=== PATIENT | male | born 1975 | race Caucasian/White ===

== ENCOUNTER 2017-06-05 10:58 | Emergency (ER) | payer BC ==
[~2017-06-05] VITALS: Ht 182.9 cm; Wt 108.0 kg
[2017-06-05 11:05] VITALS: TEMP 36.7; Ht 182.9 cm; Wt 108.0 kg
[2017-06-05] MEDS ORDERED: ACET-1311 PO (11:15)
[2017-06-05] MEDS ORDERED: OXYC1TAB3 PO (11:15)
[2017-06-05] MEDS ORDERED: OXYCODONE/ACETAMINOPHEN 5-325 TAB PO STA (11:33)
--- NOTE | 2017-06-05 12:37 | DIAGNOSTIC IMAGING REPORT ---
CT SCAN OF LUMBAR SPINE WITHOUT IV CONTRAST CLINICAL HISTORY: Low back pain with left lower extremity radiculopathy. COMPARISON STUDY: No priors. TECHNIQUE: CT scan of the lumbar spine is performed from the lower thoracic spine to the sacrum. Images are reviewed in the axial, sagittal, and coronal planes. IV contrast was not administered for this examination. A dose lowering technique was utilized adhering to the principles of ALARA. CT DOSE: 918.46 mGy.cm FINDINGS: The skeletal structures are well mineralized. There is no evidence of fracture or malalignment. Vertebral body height and alignment are maintained throughout the lumbar spine. No lytic or blastic lesion is seen. The transverse and spinous processes appear intact. There is no spondylolysis. No significant facet arthropathy is identified. There is moderate disc space narrowing at L5-S1. Mild disc space narrowing is seen at L4-L5. There is a disc herniation eccentric to the left at L4-L5. There is at least moderate central canal stenosis at this level with a minimum AP diameter of 5.5 mm. This likely impinges on the transiting bilateral nerve roots. There is a disc bulge eccentric to the left at L5-S1. This causes left-sided subarticular stenosis and may impinge on the exiting left L5 and transiting left S1 nerve roots. There is only minimal acquired compromise of the central canal at L5-S1. No significant neural foraminal stenosis is seen throughout the lumbar spine. The visualized sacrum and bony pelvis appear intact. Mild degenerative change is seen involving the sacroiliac joints. The paraspinous soft tissues are within normal limits. The retroperitoneal structures are normal as visualized. IMPRESSION: 1. No acute bony abnormality is seen involving the lumbar spine. 2. There is a disc herniation eccentric to the left at L4-L5. This causes moderate central canal stenosis and likely impinges on the bilateral transiting nerve roots. 3. A disc bulge eccentric to the left is seen at L5-S1. This may impinge on the exiting left L5 and transiting left S1 nerve roots. Dictated: 06/05/2017 12:10 PM Transcribed: 06/05/2017 12:37 PM Padma Electronically signed by: Eb Koenig M.D. 06/05/2017 1:03 PM Dictated Date/Time: 06/05/2017 12:10 PM
[2017-06-05] MEDS ORDERED: PRED20TA2 PO (13:22)
[2017-06-05] MEDS ORDERED: OXYC-57 PO (13:22)
[2017-06-05 13:34] VITALS: BP 130/91; PULSE 76; O2SAT 97
--- NOTE | 2017-06-05 16:34 | EMERGENCY ROOM VISIT NOTE ---
ED Visit Note First contact with patient: 11:14 Chief Complaint: Lower back pain. History of Present Illness: Mr. Al is a 42-year-old white male who ambulates into the ED accompanied by his complaining of lumbar back pain. Historically patient reports in 2004 he had a hemilaminectomy of the L5-S1 area for a disc herniation from a traumatic injury. Postoperative patient has had residual weakness and pain in the left lower extremity. Patient reports 2 days ago he was driving to work and felt a popping sensation in his lower back. Since that time he has been having severe lumbar back pain. He describes his pain as a sharp sensation. He places it at the L3 through S1 area. Pain is radiating down the left leg which is also residual from his previous surgery He rates his discomfort 8/10. His pain worsens with all movement of the lumbar spine and palpation. He has not identified any alleviating factors related to the pain. He has been using ibuprofen without relief of his discomfort. Associated with his pain he reports he is having left lying numbness but does report he had this from his previous surgery and it slightly more intense than previous. He denies any associated fevers, chills, sweats, skin eruptions, skin color changes, recent trauma, abdominal pain, nausea, vomiting, diarrhea, constipation , rectal bleeding, black/tarry stools, urinary symptoms, hematuria, bowel and bladder dysfunction, genital paresthesias. Review of Systems: As noted above in history of present illness. All body systems were reviewed and found to be negative as noted above. Past Medical History: As previously noted and kidney stones. Current Medications: Patient denies. Allergies to Medications: Patient denies. Social History: Patient is currently employed; he feels safe in his home environment; he admits to tobacco and alcohol use. Physical Examination: Vital Signs: Date Time Temp Pulse Resp B/P (MAP) Pulse Ox O2 Delivery O2 Flow Rate FiO2 06/05/17 13:34 76 18 130/91 97 06/05/17 13:04 76 18 130/91 97 Room Air 06/05/17 11:05 36.7 94 16 141/94 94 Room Air GENERAL: 42-year-old male in moderate distress due to pain, nontoxic-appearing, afebrile and hemodynamically stable. NEUROLOGICAL: Awake, alert and oriented to person, place and time. Answering questions appropriately and following commands. Normal gait. Good hand eye coordination. No focal motor sensory deficits. SKIN: Warm, dry and pink. No soft tissue eruptions or trauma noted. HEENT: Atraumatic and normocephalic. BACK: No tenderness over the bony cervical and thoracic spine. Moderate tenderness from the L3 to S1 area over the bony prominence and throughout the paraspinous muscles. No palpable bony deformity or crepitus. Previous surgical site is clean dry and intact. Positive straight leg raise test bilaterally but more prominent on the left than the right. Decreased range of motion in all movements at the waist due to pain. No CVA tenderness. THORAX: Lungs sounds are clear to auscultation and equal bilaterally with symmetrical chest wall. HEART: Regular rate and rhythm. No gallops, rubs or murmurs are appreciated. ABDOMEN: Flat, soft and nontender. Positive bowel sounds in all quadrants. No guarding, rigidity or organomegaly. LOWER EXTREMITIES: No gross bony deformity. No shortening or malrotation. No tenderness in the hip, knee, ankle, foot. Difficulty to elicit patellar reflexes but plantar flexes were 2+ bilaterally. 4/5 muscle strength in all movements of the hip, ankle and knee. No calf tenderness or cords. No dependent edema. Pulses are intact and capillary refill is brisk. He was able to distinguish light sensations. ED Course: Patient is assessed as noted above. Patient's medication list was reviewed. Patient was given 2 Percocet 5/325 mg tablets by mouth for pain. Lumbar Spine CT: Was reviewed by myself and read by the radiologist showing disc herniation eccebtruc to the left at L4-L5 causing moderate canal stenosis and likely impinges on the bilateral transiting nerve roots. Disc bulging eccentric to the left at L5-S1 with impingement on the exiting L5 and transiting left S1 nerve root. Patient's case was reviewed with Dr. Little; we agreed on diagnostic approach, treatment, disposition and plan. I attempted to consulted with Dr. Dawson but was unsuccessful. Patient was educated about today's findings and instructed on his treatment plan ; he verbalizes understanding and agreement with this plan. Clinical Impression: L4-L5 disc herniation with worsening left-sided neuropathy. Disposition: Patient discharged home in stable condition accompanied by his ; prior to departure he was reassessed and continued to rate his discomfort . Plan: Comfort measures were discussed with the patient including rest, ice and a sliding pain medication scale of ibuprofen, acetaminophen and Percocet; his name was checked in the state database and no red flags were noted and he was given appropriate narcotic precautions. Patient was prescribed prednisone 60 mg once a day for total of 5 days. Patient was encouraged to follow-up with Dr. Dawson, the [facility] for definitive care and treatment. Patient was encouraged return ED for worsening/uncontrolled pain, fevers, abdominal pain, worsening leg weakness/numbness/tingling, inability control bowel and bladder functions, genital paresthesias or any new/concerning symptoms.
== END 2017-06-05 13:37 | disposition home or self-care (01) ==
LOC: C.EDB 10:59 → C.EDD 13:37
DX: M51.16 Intervertebral disc disorders with radiculopathy, lumbar region (principal); F17.200 Nicotine dependence, unspecified, uncomplicated; Z72.89 Other problems related to lifestyle; Z87.442 Personal history of urinary calculi

== ENCOUNTER → 2017-06-21 | Outpatient (CLI) | payer BC ==
[~2017-06-21] MED LIST: ACET-1256 PO; ACET-1311 PO; CALC500C3 PO; HYDR-4079 PO; IBUP-1050 PO; LANS15CA6 PO; OXYC-57 PO; OXYC1TAB3 PO; PRD/1 PO
[2017-06-21 13:42] LABS: BASO % 0.2 %; BASO ABS # 0.02 K/uL (0-0.2); COMPLETE YES; EOS % 0.7 %; HEMATOCRIT 47.8 % (42-52); IG% 0.4 %; LYMPH % 31.4 %; LYMPH ABS # 3.37 K/uL (1.2-3.4); MEAN CELL VOLUME 97.8 fL (80-100); MEAN CORPUSCULAR HEMOGLOBIN 33.1 pg (25-34); MEAN CORPUSCULAR HGB CONC 33.9 g/dl (32-36); MEAN PLATELET VOLUME 10.3 fL (7.4-10.4); MONO % 8.2 %; NEUT % 59.1 %; PLATELET COUNT 245 K/uL (130-400); RED BLOOD COUNT 4.89 M/uL (4.7-6.1); WHITE BLOOD COUNT 10.73 K/uL (4.8-10.8)
== END | disposition home or self-care (01) ==
LOC: C.LABBC 10:07
PROVIDERS: ATTEND Orthopaedic Surgery Orthopaedic Surgery of the Spine
DX: Z01.818 Encounter for other preprocedural examination (principal)

== ENCOUNTER 2017-07-07 08:43 | Inpatient (IN) | payer BC ==
[2017-06-23 15:46] VITALS: BMI 32.0
--- NOTE | 2017-07-06 12:02 | HISTORY & PHYSICAL EXAMINATION ---
DATE OF ADMISSION: 07/07/2017 HISTORY OF PRESENT ILLNESS: He is being preoped for a posterior lumbar interbody fusion at L5-S1. Rosales is a delightful gentleman. I have known him for several weeks. He has regressed. He is not improved. He has some neurological deficit. He cannot function at work. He has been worked up for disc herniation and degenerative changes of lumbar spine. He has no red flags of fevers, sweats, chills. He is being again set for a PLIF procedure L5-S1. PAST MEDICAL HISTORY: Positive for spine problems, acid reflux, obesity. SURGICAL HISTORY: Spine surgery. No history of EKG issues, hypertension, does have high cholesterol. No diabetes, no anemia. MEDICATIONS: Include Percocet, prednisone. SOCIAL HISTORY: Negative alcohol, negative cigarettes, negative tobacco, no herbs or supplements. REVIEW OF SYSTEMS: Denies fever, sweats, chills, bowel and bladder issues, weight loss, gain. Denies chest pain, palpitation, shortness of breath. Denies nausea, vomiting, urgency, frequency, dysuria. Admits to some back pain, primarily lower extremity difficulty secondarily. OBJECTIVE: VITAL SIGNS: Stable. Blood pressure 130/80, pulse 80, respiration rate 16, afebrile. HEAD, EYES, EARS, NOSE, AND THROAT: Pupils react to light and accommodation. Ear, nose and throat clear. CARDIAC: Normal S1, S2, no S3. LUNGS: Clear to auscultation. No rales, rhonchi or wheezing. ABDOMEN: Soft, nontender. MUSCULOSKELETAL: He has some paresthesias to the lower extremities. Positive pain with straight leg raising, positive tension signs. No upper motor neuron issues. Range of motion decreased by a factor of about 50 to 75% per normal on flexion, extension, rotation, side bending. X-rays demonstrate herniation, degenerative changes L5-S1. ASSESSMENT: Disc herniation L5-S1, degenerative changes L5-S1. PROCEDURE: Included a posterior lumbar interbody fusion L5-S1.
[2017-07-07] VITALS (8 sets, daily range): BP systolic 109–157; BP diastolic 68–97; PULSE 73–111; TEMP 36.4–36.9; O2SAT 97–99; Ht 182.9 cm; Wt 109.1 kg
[~2017-07-07] VITALS: Ht 182.9 cm; Wt 109.1 kg
[~2017-07-07 08:43] MED LIST changes: -ACET-1311 PO; +CEFAZOLIN 2000MG IV PUSH 10 ML IV SCH; +LACTATED RINGER'S 1000ML 1,000 ML IV SCH; -OXYC1TAB3 PO; +SODIUM CHLORIDE 0.9% 1000ML 1,000 ML IV SCH
[2017-07-07] MEDS ORDERED: DEXAMETHASONE SOD INJ 4 MG/ML VIAL ONE ×3 (10:26→13:54)
[2017-07-07] MEDS ORDERED: LIDOCAINE HCL 2% 2 ML VIAL (20MG/ML) ONE (10:26)
[2017-07-07] MEDS ORDERED: PHENYLEPHRINE HCL INJ 10 MG/ML VIAL ONE (10:26)
[2017-07-07] MEDS ORDERED: NEOSTIGMINE METHYLSULFATE 1 MG/ML 10ML VIAL ONE (10:26)
[2017-07-07] MEDS ORDERED: ONDANSETRON INJ 2 MG/ML 2 ML VIAL ONE (10:26)
[2017-07-07] MEDS ORDERED: EpHEDrine SULFATE INJ 50 MG/ML AMP ONE (10:26)
[2017-07-07] MEDS ORDERED: SUCCINYLCHOLINE CHLORIDE 20 MG/ML 10 ML VIAL IV ONE ×2 (10:26→13:55)
[2017-07-07] MEDS ORDERED: PROPOFOL IV EMULSION 10 MG/ML 20 ML VIAL IV ONE (10:26)
[2017-07-07] MEDS ORDERED: GLYCOPYRROLATE INJ 0.2 MG/ML VIAL ONE (10:26)
[2017-07-07] MEDS ORDERED: FENTANYL CITRATE INJ 50 MCG/1 ML 2 ML VIAL ONE ×3 (10:27→13:14)
[2017-07-07] MEDS ORDERED: MIDAZOLAM HCL 1 MG/ML 2ML VIAL ONE (10:27)
[2017-07-07] MEDS ORDERED: VANCOMYCIN HCL 1000MG/20ML VIAL ONE (10:47)
[2017-07-07] MEDS ORDERED: BACITRACIN 50000 UNIT VIAL ONE (10:47)
[2017-07-07] MEDS ORDERED: THROMBIN FOR SOLN 20000 UNIT KIT ONE (10:47)
[2017-07-07] MEDS ORDERED: GELATIN SPONGE SZ 100 ONE (10:47)
[2017-07-07] MEDS ORDERED: BUPIVACAINE 0.5 % 5 MG/1 ML MPF 30ML VIAL ONE (10:48)
[2017-07-07] MEDS ORDERED: EpINEphrine INJ 1MG/ML AMP 1 MG/ML AMP ONE (10:48)
--- NOTE | 2017-07-07 11:04 | History & Physical Bridge Note ---
H&P Re-Evaluation Bridge Note: I have examined the patient, reviewed the History & Physical and in the interval since the performance of the History & Physical I have noted the following changes of clinical significance: No changes noted
[2017-07-07] MEDS ORDERED: HYDROmorphone INJ 2 MG/ML SYR/VIAL ONE (11:40)
[2017-07-07] MEDS ORDERED: ROCURONIUM BROMIDE 10 MG/ML 5 ML VIAL IV ONE (13:54)
[2017-07-07] MEDS ORDERED: HYDROmorphone INJ 1 MG/ML SYR IV PRN (14:15)
[2017-07-07] MEDS ORDERED: NALOXONE HCL 0.4 MG/1 ML VIAL/CARP IV PRN ×2 (14:15→14:30)
[2017-07-07] MEDS ORDERED: LABETALOL HCL IV 5 MG/ML 20ML IV PRN (14:15)
[2017-07-07] MEDS ORDERED: EpHEDrine SULFATE INJ 50 MG/ML AMP IV PRN (14:15)
[2017-07-07] MEDS ORDERED: FLUMAZENIL 0.1 MG/1 ML 10 ML VIAL IV PRN (14:15)
[2017-07-07] MEDS ORDERED: ATROPINE SULFATE 0.1 MG/ML 5ML SYR IV PRN (14:15)
[2017-07-07] MEDS ORDERED: PROMETHAZINE HCL INJ 12.5 MG in SODIUM CHLORIDE 0.9% 50ML 50 ML IV PRN ×2 (14:15→14:30)
[2017-07-07] MEDS ORDERED: ONDANSETRON INJ 2 MG/ML 2 ML VIAL IV PRN ×2 (14:15→14:30)
--- NOTE | 2017-07-07 14:20 | [facility] Post Operative Brief Note ---
Immediate Operative Summary Operative Date Jul 07, 2017. Pre-Operative Diagnosis Disc herniation L5-S1 Post-Operative Diagnosis Disc herniation L5-S1 Procedure(s) Performed L5-S1 Posterior Lumbar Decompression/Fusion and Interbody Fusion Surgeon Aluminum Molding Machine Operator Surgeon(s) Wali SANABRIA Estimated Blood Loss 200ML Findings herniation and instability Specimens None per surgeon Complication(s) None Disposition Recovery Room / PACU
[2017-07-07] MEDS ORDERED: MAGNESIUM HYDROXIDE SUSP 30 ML UDC PO PRN (14:30)
[2017-07-07] MEDS ORDERED: METOCLOPRAMIDE HCL INJ 5 MG/ML 2 ML VIAL IV PRN (14:30)
[2017-07-07] MEDS ORDERED: LORAZEPAM 1 MG TAB PO PRN (14:30)
[2017-07-07] MEDS ORDERED: HYDROmorphone HCL 0.5MG/ML 50 ML CASSETTE IV PRN (14:30)
[2017-07-07] MEDS ORDERED: LORAZEPAM INJ 1 MG in SYRINGE 0.5 ML IV PRN (14:30)
[2017-07-07] MEDS ORDERED: ACETAMINOPHEN 325 MG TAB PO PRN (14:30)
[2017-07-07] MEDS ORDERED: CEFAZOLIN IV 1,000 MG in DEXTROSE 5% 50ML 50 ML IV SCH (14:30)
[2017-07-07] MEDS ORDERED: HYDROmorphone HCL 0.5MG/ML 50 ML CASSETTE ONE (14:31)
[2017-07-07] MEDS ORDERED: HYDROmorphone INJ 1 MG/ML SYR ONE (14:32)
[2017-07-07 15:29] LABS: HEMATOCRIT 42.8 % (42-52)
--- NOTE | 2017-07-07 15:38 | OPERATIVE REPORT ---
DATE OF OPERATION: 07/07/2017 PREOPERATIVE DIAGNOSES: Instability of lumbar spine, degenerative disk of lumbar spine, disk herniation of lumbar spine; all at L5-S1. POSTOPERATIVE DIAGNOSES: Same. PROCEDURE: 1. Posterior lumbar complete discectomy L5-S1. 2. Pedicle screw instrumentation, L5-S1. 3. Posterior lumbar interbody fusion L5-S1 4. Posterolateral fusion, L5-S1. SURGEON: Dr. Dawson. TOBACCO DRIER OPERATOR: Wali Muñoz PA-C. COMPLICATIONS: Zero. BLOOD LOSS: Approximately 200 mL. IMPLANTS USED: Simalaya. DESCRIPTION OF PROCEDURE: The patient was taken to the operating room and general intubated anesthetic provided to the patient, placed prone, scrubbed, prepped and draped sterile. I made a skin incision, fascial incision, a fairly robust individual, the dissection was fairly difficult. We do easton muscle relaxant, it was difficult to left hand side to get out over the sacral facet joint. We did accomplish the task. I put in a deep self-retaining retractor. We formally decompressed the neural elements. Basically a laminectomy at L5, foraminotomy, partial facetectomy, the entire lamina was removed including the facet joints at L5-S1. We then safely got pedicle screws into 5 and S1 bilaterally from the Simalaya bearing lines from 40-50 mm. We then were able to safely get an interbody on the patient at L5-S1. We retracted the dura over first on the right hand side, do a complete discectomy then the left hand side, also doing a complete discectomy. We then used and spinal implants preceded by bone graft into the disk interval. The implants on the left hand side was 22 mm in length and 8 mm in height and 8 mm across the right hand side implant by [employer] was 8 mm in height, 10 mm in width and 26 mm in length. The post-instrumented in images were the appropriate. We irrigated and closed in layers with #1 Vicryl suture, 2-0 in the subcuticular layer; all over a Hemovac drain; all of vancomycin powder, 3-0 nylon on the skin. Sterile dressings applied. The patient returned to PACU stable. No apparent interoperative complications. I attest to the content of the Intraoperative Record and any orders documented therein. Any exception s are noted below.
--- NOTE | 2017-07-07 15:59 | Anesthesiology Progress Note ---
Anesthesia Post Op Note Date & Time Jul 07, 2017 at 15:59 Vital Signs Pain Intensity: 5 Vital Signs Past 12 Hours Date Time Temp Pulse Resp B/P (MAP) Pulse Ox O2 Delivery O2 Flow Rate FiO2 07/07/17 15:32 36.6 07/07/17 15:31 122/96 07/07/17 15:28 97 13 07/07/17 15:28 97 13 97 07/07/17 15:23 96 14 98 07/07/17 15:23 99 14 07/07/17 15:21 125/90 07/07/17 15:18 105 19 97 07/07/17 15:18 105 19 07/07/17 15:16 136/93 07/07/17 15:13 96 12 97 07/07/17 15:13 96 12 07/07/17 15:12 99 16 07/07/17 15:12 98 16 98 07/07/17 15:11 133/100 07/07/17 15:07 99 16 98 07/07/17 15:07 101 16 07/07/17 15:06 155/94 07/07/17 15:02 97 13 98 07/07/17 15:02 96 13 07/07/17 15:01 143/92 07/07/17 14:58 97 19 07/07/17 14:58 96 19 98 07/07/17 14:56 149/102 07/07/17 14:53 99 12 98 07/07/17 14:53 99 12 07/07/17 14:51 154/86 07/07/17 14:48 99 10 97 07/07/17 14:48 99 10 07/07/17 14:46 143/98 07/07/17 14:43 101 17 99 07/07/17 14:43 100 17 07/07/17 14:41 113/89 07/07/17 14:38 101 13 07/07/17 14:38 101 13 98 07/07/17 14:36 138/102 07/07/17 14:33 110 18 97 07/07/17 14:33 111 18 07/07/17 14:29 147/92 07/07/17 14:28 123 16 07/07/17 14:28 36.2 110 16 147/92 98 Oxymask 10 07/07/17 14:28 124 16 99 07/07/17 09:12 36.7 86 16 157/97 97 Room Air Notes Mental Status: alert / awake / arousable, participated in evaluation Pt Amnestic to Procedure: Yes Nausea / Vomiting: adequately controlled Pain: adequately controlled Airway Patency, RR, SpO2: stable & adequate BP & HR: stable & adequate Hydration State: stable & adequate Anesthetic Complications: no major complications apparent
[2017-07-07] MEDS ORDERED: SODIUM CHLORIDE 0.9% 1000ML 1,000 ML IV SCH (16:20)
[2017-07-07] MEDS ORDERED: LANSOPRAZOLE SOLUTAB 15 MG PO PRN (16:30)
[2017-07-07] MEDS: SODIUM CHLORIDE 0.9% 1000ML 1,000 ML IV SCH ×2 (16:38→21:26)
[2017-07-07] MEDS: CEFAZOLIN IV 2,000 MG in SYRINGE 0 ML IV SCH (18:12)
[2017-07-07] MEDS: DEXAMETHASONE INJ 10 MG in SYRINGE 0 ML IV SCH (18:13)
[2017-07-07] MEDS: KETOROLAC TROMETHAMINE 30 MG/ML VIAL IV SCH ×2 (18:13→23:23)
[2017-07-07] MEDS ORDERED: NURSING VERBAL MED ORDER ONE (21:30)
[2017-07-08] VITALS (7 sets, daily range): BP systolic 100–135; BP diastolic 66–90; PULSE 53–76; TEMP 36.5–36.8; O2SAT 95–98
[2017-07-08] MEDS: CEFAZOLIN IV 2,000 MG in SYRINGE 0 ML IV SCH ×2 (02:01→09:36)
[2017-07-08] MEDS: DEXAMETHASONE INJ 10 MG in SYRINGE 0 ML IV SCH (02:16)
[2017-07-08] MEDS ORDERED: HYDROmorphone INJ 2 MG/ML SYR/VIAL IV PRN (06:00)
[2017-07-08] MEDS ORDERED: DC PCA ONE (06:00)
[2017-07-08] MEDS ORDERED: BISACODYL 5 MG TABEC PO PRN (06:00)
[2017-07-08] MEDS ORDERED: OXYCODONE/ACETAMINOPHEN 5-325 TAB PO PRN ×2 (06:00)
[2017-07-08] MEDS ORDERED: BISACODYL 10 MG SUPP PR PRN (06:00)
[2017-07-08] MEDS ORDERED: HYDROmorphone INJ 1 MG/ML SYR IV PRN (06:00)
[2017-07-08] MEDS: KETOROLAC TROMETHAMINE 30 MG/ML VIAL IV SCH ×3 (06:13→18:11)
[2017-07-08] MEDS: POLYETHYLENE (MIRALAX) 17 GM PACK PO SCH (07:16)
[2017-07-08] MEDS: DEXAMETHASONE INJ 6 MG in SYRINGE 0 ML IV SCH ×3 (09:36→22:29)
--- NOTE | 2017-07-08 12:47 | Discharge Instructions ---
Discharge Instructions Date of Service Jul 08, 2017. Admission Reason for Admission: Lumbar Disc Herniation, Spinal Stenosis Discharge Discharge Diagnosis / Problem: same Discharge Goals Goal(s): Improve function Activity Recommendations Activity Limitations: as noted below Lifting Limitations: until after follow-up appointment Exercise/Sports Limitations: until after follow-up appointment Shower/Bathe: may shower/bathe in 3 days . Instructions / Follow-Up Instructions / Follow-Up MEDICATIONS: Please take your prescriptions as instructed at your pre-op appointment. SPECIAL CARE: The following information is intended to answer some of the common questions and concerns regarding your surgery. Each patient is an individual and receives individual counselling throughout the course of treatment, from diagnosis to surgery all the way through recovery. What follows is not an exhaustive list, but should be a useful guide to some of the common questions and concerns patients have regarding their surgeries. These are not provided to keep you from calling us; rather, they give you something accurate and concrete to reference as you recover from your procedure. If you need us, we are available to you. As always, if you are not sure about something, call us at [phone]. MEDICAL EMERGENCIES: For these conditions, call 911 or go to your local hospital-based Emergency Department - not [facility] or equivalent. * Paralysis * Severe chest pain or difficulty breathing * Swelling or redness of either leg Spine procedures can be rather complex and though complications are rare, they do occur. In such cases, effective advice regarding emergency situations cannot always be addressed over the telephone. You may be referred to the emergency department for more effective management of your problem. Activity Limitations: It is important to give your body time to heal, so please limit your activities : * In general, don't do anything that moves your spine too much. You should avoid contact sports, twisting or heavy lifting while you recover. * 5-10 pounds is all you should attempt to lift. * You should not plan on driving for approximately 3 weeks and you should avoid traveling more than 30-45 minutes at a time. Longer trips should be broken down with walking breaks spaced appropriately. * Physical therapy is not usually required. * Walking and good posture practices will help you recover and regain your function. * Avoid straining or sudden changes in position. * In general, the goal is to take it easy and recover. Don't cause any new problems. Just relax. Showers: * Do not take a bath, use a Jacuzzi or hot tub or otherwise submerge your incision. * It is usually safe to take a shower 4-5 days after your surgery. * Your incision does not require any special creams or ointments. * Simply clean it with soap and water, dry and re-dress with a clean bandage afterwards. Incision: * Keep incision clean, dry and protected until your first follow-up appointment. * Some amount of drainage and redness is normal. Any drainage should be fairly clear and not have a foul odor. * If you feel anything is wrong or you have excessive drainage, please call us. * Your stitches and lillian will be removed 10-14 days after your surgery. At the time of your first post-op visit. * Neck surgeries are typically closed with a suture underneath the skin. The steri-strips over the incision should be maintained until we see you in the office. Bracing: * You may be provided with a back or neck brace to encourage good posture and prevent injury. It will remind you not to do too much as you heal and will alert others to the fact that you have had a surgery. * Back braces may be removed for showers and when you are resting at home. They must be worn when you are walking around for any period of time or for travel. * For neck surgery, you will likely be provided with two cervical collars. The soft collar (Alto or foam rubber) is worn most commonly throughout the day and while sleeping. The plastic collar (provided at the hospital) is for showering/bathing. * Except while eating, collars should remain in place. More specifically, bracing is provided for a purpose and should be worn. * Please obtain your brace or collars prior to your operation and bring them to the hospital with you on the day of surgery. * You should also bring your collars to your post-op appointment with Dr. Dawson. You should always take good care of your body and practice healthy habits, especially following surgery. You should: * Follow your doctor's treatment plan * Sit and stand properly with good posture (ears over shoulders, shoulders over hips) Don't slouch * Learn to lift correctly * Exercise regularly (low-impact aerobic exercise is especially good, but check with your doctor first) * Generally, be up and walking for 5-10 minutes at a time at least 3-4 times per day from the day you get home * Increasing walking to tolerance until you can walk for 20-30 minutes at a time * Attain and maintain a healthy body weight * Eat healthy foods ( a well-balanced, low-fat diet rich in fruits and vegetables) and get enough calcium * Avoid excessive use of alcohol When to call our office - If you notice any of the following: * Increased pain not relieve by pain medicine * Fevers greater then 100 degrees F, chills or flu symptoms * Increased redness around incision * Drainage from the incision that is not clear * Any foul smelling drainage * Swelling or fluid collection beneath the skin Miscellaneous: * In the hospital, you may be given a walker or cane for support while walking. These are temporary needs and are intended to prevent injuries due to falls. You may discontinue them when you feel strong and steady enough on your feet. * Sleep in a comfortable position. We find that many patients find a lounge chair or recliner with several pillows to be beneficial in the early post-operative period. * The support stockings should be used for 7-10 days and may be discontinued when you are back to walking more and conducting usual household activities. No problem is insignificant. We are here to help you and get you well. Contact us at [phone]. Definitions: Foraminotomy: If part of the disc or a bone spur (osteophyte) is pressing on a nerve as it leaves the vertebra (through an exit called the foramen), a foraminotomy may be done. Otomy means "to make an opening." A foraminotomy is making the opening of the foramen larger, so the nerve can exit without being compressed. Laminotomy: Similar to the foraminotomy, a laminotomy makes a larger opening, this time in your bony plate protecting your spinal canal and spinal cord (the lamina). The lamina may be pressing on your nerve, so the surgeon may make more room for the nerves using a laminotomy. Laminectomy: Sometimes, a laminotomy is not sufficient. The surgeon may need to remove all or part of the lamina. This procedure is called a laminectomy. This can often be done at many levels without any harmful effects. Current Hospital Diet Patient's current hospital diet: Regular Diet Discharge Diet Recommended Diet: Regular Diet Procedures Procedures Performed: L5-S1 Posterior Lumbar Decompression/Fusion and Interbody Fusion Pending Studies Studies pending at discharge: no Medical Emergencies . Who to Call and When: Medical Emergencies: If at any time you feel your situation is an emergency, please call 911 immediately. . Non-Emergent Contact Non-Emergency issues call your: Primary Care Provider . "Provider Documentation" section prepared by Maurizio Dawson. . VTE Core Measure Inpt VTE Proph given/why not?: Treatment not indicated
[2017-07-08] MEDS ORDERED: HYDR2TAB48 PO (12:50)
[2017-07-09] MEDS: DEXAMETHASONE INJ 6 MG in SYRINGE 0 ML IV SCH ×2 (04:10→10:03)
[2017-07-09 07:35] VITALS: BP 111/69; PULSE 55; TEMP 36.5; O2SAT 99
[2017-07-09] MEDS: POLYETHYLENE (MIRALAX) 17 GM PACK PO SCH (09:07)
[2017-07-09] MEDS ORDERED: NRN/300 PO (09:32)
[2017-07-09] MEDS ORDERED: METH1TAB81 PO (09:34)
--- NOTE | 2017-07-09 09:45 | DISCHARGE SUMMARY ---
DATE OF DISCHARGE: 07/09/2017 Alert, oriented, minimal complaints of pain, some lower extremity difficulty, paresthesias. No weakness. Vital signs stable. Wound clean, no calf tenderness. No shortness of breath, no confusion. Rosales is a delightful gentleman. He is 2 days after complex spinal reconstructive surgery, stable. We will discharge him home this morning. Instructions, precautions provided. He is given ample medications here in the hospital, instructions at the hospital and instructions in the office.
[2017-07-09 09:59] VITALS: BP 111/69; PULSE 55; TEMP 36.5; O2SAT 99
== END 2017-07-09 11:40 | disposition home or self-care (01) | DRG 455 ==
LOC: C.ACU 08:43 → C.3E 11:10 → ENRESERV 15:22
PROVIDERS: ADMIT Orthopaedic Surgery Orthopaedic Surgery of the Spine; ATTEND Orthopaedic Surgery Orthopaedic Surgery of the Spine
PROC: 0SG3071 Fusion of Lumbosacral Joint with Autologous Tissue Substitute, Posterior Approach, Posterior Column, Open Approach (ICD-10-PCS; principal; 2017-07-07 10:45)
PROC: 0ST40ZZ Resection of Lumbosacral Disc, Open Approach (ICD-10-PCS; principal; 2017-07-07 10:45)
PROC: 0SG30AJ Fusion of Lumbosacral Joint with Interbody Fusion Device, Posterior Approach, Anterior Column, Open Approach (ICD-10-PCS; principal; 2017-07-07 10:45)
DX: M51.17 Intervertebral disc disorders with radiculopathy, lumbosacral region (principal); M53.2X7 Spinal instabilities, lumbosacral region; K21.9 Gastro-esophageal reflux disease without esophagitis; F17.220 Nicotine dependence, chewing tobacco, uncomplicated; E66.9 Obesity, unspecified; Z68.32 Body mass index [BMI] 32.0-32.9, adult; Z79.52 Long term (current) use of systemic steroids; Z79.891 Long term (current) use of opiate analgesic